=== PATIENT | male | born 1945 | race Asian ===

== ENCOUNTER 2017-06-30 07:33 | Day surgery (SDC) | payer OTHER ==
[2017-06-29 10:54] VITALS: BMI 21.7
[2017-06-30] MEDS ORDERED: KETOROLAC TROMETHAMINE 30 MG/1 ML VIAL ONE (09:10)
[2017-06-30] MEDS ORDERED: DEXAMETHASONE SOD PHOSPHATE 4 MG/1 ML VIAL ONE (09:10)
[2017-06-30] MEDS ORDERED: PROPOFOL 20 ML ONE ×2 (09:11)
[2017-06-30] MEDS ORDERED: MIDAZOLAM HCL 2 MG/2 ML SINGLE DOSE VIAL ONE (09:11)
[2017-06-30] MEDS ORDERED: ceFAZolin SODIUM 1 GM VIAL IVPB ONE (09:41)
[2017-06-30] MEDS ORDERED: ePHEDrine SULFATE 50 MG/1 ML AMPULE ONE (09:43)
[2017-06-30] MEDS ORDERED: LIDOCAINE HCL 2% JELLY 10 ML CARTRIDGE ONE (10:06)
[2017-06-30] MEDS ORDERED: oxyCODONE HCL 5 MG TABLET PO PRN ×2 (10:14→10:28)
[2017-06-30] MEDS ORDERED: DEXTROSE 5%-0.45% SALINE 1,000 ML IV SCH (10:15)
--- NOTE | 2017-06-30 10:16 | OP ---
Operative Note - Note: Operative Date: 06/30/17 Pre-Operative Diagnosis: bladder tumor Operation: TURBT Post-Operative Diagnosis: Same as Pre-op Surgeon: Jamil Rolon Anesthesiologist/DETAIL MANAGER: Jamil Rain Anesthesia: General Specimens Removed: bladder tumor Estimated Blood Loss (mls): 5 Drains & Tubes with Location: 24 fr chance Operative Report Dictated: Yes
--- NOTE | 2017-06-30 10:18 | HP ---
History & Physical Update - History History: No Change - Physical Physical: No Change - Assessment Assessment: No Change - Plan Plan: No Change
[2017-06-30] MEDS ORDERED: ONDANSETRON 4 MG/2 ML VIAL IVPUSH PRN (10:28)
[2017-06-30] MEDS ORDERED: PROMETHAZINE HCL 25 MG/1 ML VIAL IVPUSH PRN (10:28)
[2017-06-30] MEDS ORDERED: LACTATED RINGERS SOLUTION 1,000 ML IV SCH (10:30)
[2017-06-30 11:12] VITALS: TEMP 98.4
[2017-06-30 13:11] VITALS: BP 144/83; PULSE 76
--- NOTE | 2017-07-01 10:13 | OP ---
DATE OF OPERATION: 06/30/2017 PREOPERATIVE DIAGNOSIS: Bladder tumor. POSTOPERATIVE DIAGNOSIS: Bladder tumor. PROCEDURE: Transurethral resection of bladder tumor. SURGEON: Letty Shah MD INDICATION: Patient is a 72-year-old male with recent bladder tumor. He had 2 tumors, one in the posterior wall and one in the bladder neck. Tumors came back as high-grade with no muscle tissue. So, he was taken to the OR for repeat TURBT. DESCRIPTION OF PROCEDURE: Patient taken to the OR, placed supine on the operating table. After cardiac monitoring, administered general anesthesia. Abdomen was prepped and draped in dorsal supine position. The 26-sheath resectoscope was introduced without difficulty with the visual obturator. Anterior urethra was normal. The prostatic urethra was visually occlusive at 3 cm. The bladder was visualized. The prior TURBT resection site in the posterior wall was noted, and this was re-resected and sent to Pathology for analysis. Then, looking at the bladder neck, there appeared to be some residual tumor at the bladder neck. This was resected in its entirety as well as deep tissue, and this was sent as a separate specimen. No other tumors were noted. The left ureteral orifice was seen and in normal anatomic position. At this point, the resectoscope was removed, and a 20-Sinhala Snow was then placed to straight drainage. [place]-tinged urine retrieved. Patient was awoken from anesthesia and transferred to the recovery room in stable condition. There were no complications. Estimated blood loss was minimal. LETTY SHAH M.D. [id number]
--- NOTE | 2017-07-01 17:44 | PATH ---
Surgical Pathology Report Patient Name: AMY KWON [facility]. Rec. #: [id number] /Age/Gender: 1945 (Age: 72) / M Account: [id number] Location: [facility] SURGICAL Taken: 06/30/2017 Received: 06/30/2017 Reported: 07/01/2017 Physicians: Jamil Rolon M.D. Specimen(s) Received A: BLADDER TUMOR POSTERIOR WALL INCLUDING BASE OF PREVIOUS RESECTION B: TUMOR AT BLADDER NECK INCLUDING BASE OF POSTERIOR RESECTION Clinical History Bladder tumor Final Diagnosis A. BLADDER, TUMOR, POSTERIOR BLADDER WALL INCLUDING BASE OF PREVIOUS RESECTION, TRANSURETHRAL RESECTION OF BLADDER TUMOR: BENIGN ACUTE AND CHRONIC POLYPOID CYSTITIS. MUSCULARIS PROPRIA IDENTIFIED. NO CARCINOMA IDENTIFIED. B. 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 MUSCULARIS PROPRIA IDENTIFIED. NO FLAT CARCINOMA IN SITU (CIS) IDENTIFIED. Comment: Office of Dr. Rolon informed that significant findings will be faxed ([id number]). 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 Medical chart reviewed. Electronically Signed Iliana Flores M.D. Gross Description A. Received in formalin labeled "bladder tumor posterior bladder wall including base of previous resection," is a 1.5 x 1.2 x 0.3 cm aggregate of lemus-brown soft tissue fragments. The formalin is filtered and the specimen is entirely submitted in one cassette. B. Received in formalin labeled "tumor at bladder neck including base of previous resection," is a 2.0 x 1.2 x 0.3 cm aggregate of lemus pink soft tissue fragments. The formalin is filtered and the specimen is entirely submitted in one cassette. 06/30/201706/30/2017
== END 2017-06-30 13:00 | disposition home or self-care (01) ==
LOC: JASU-SURG 07:33
PROVIDERS: ATTEND Urology
PROC: 0TBB8ZX Excision of Bladder, Via Natural or Artificial Opening Endoscopic, Diagnostic (ICD-10-PCS; principal; 2017-06-30 09:00)
DX: C67.5 Malignant neoplasm of bladder neck (principal); N30.00 Acute cystitis without hematuria; N30.20 Other chronic cystitis without hematuria
CPT/HCPCS: 88305-TC; 94760